=== PATIENT | female | born 1975 | race African-American/Black ===

== ENCOUNTER 2022-03-22 08:29 | Inpatient (IN) | payer MEDICARE, MEDICAID ==
[~2022-03-22] VITALS: Ht 162.6 cm; Wt 73.3 kg
[2022-03-22] MEDS ORDERED: SODIUM CHLORIDE 0.9% 1000ML BAG (SEPSIS BOLUS) IV ONE (08:45)
[2022-03-22 09:20] LABS: BASOPHILS % 0.4 % (0.0-2.0); CHLORIDE 108 mEq/L (98-107); EOSINOPHILS % 0.7 % (0.0-5.0); HEMATOCRIT. 25.7 % (36.0-48.0); LYMPHOCYTES % 23.9 % (20.0-50.0); MEAN CORPUSCULAR HEMOGLOBIN 29.3 pg (28.0-32.0); MEAN CORPUSCULAR VOLUME 94.2 fL (81.0-99.0); MEAN PLATELET VOLUME 9.4 fl (7.4-10.4); MONOCYTES % 8.3 % (2.0-8.0); NEUTROPHILS % 66.7 % (40.0-76.0); PLATELET 288 x1000/uL (130-400); RED BLOOD CELL COUNT 2.73 mill/uL (4.2-5.4); RED CELL DISTRIBUTION WIDTH 17.6 % (11.6-14.6)
[2022-03-22 09:23] LABS: PROTHROMBIN TIME 10.8 sec (9.6-11.0)
[2022-03-22 09:29] LABS: CLARITY URINE TURBID (CLEAR); COLOR URINE YELLOW (YELLOW); KETONES URINE NEGATIVE (NEGATIVE); LEUKOCYTE ESTERASE URINE 3+ (NEGATIVE); NITRITE URINE POSITIVE (NEGATIVE); OCCULT BLOOD URINE 3+ (NEGATIVE); PH URINE 7.5 (4.5-8.0); PROTEIN URINE 3+ (NEGATIVE); SPECIFIC GRAVITY URINE 1.013 (1.005-1.030); UROBILINOGEN URINE 0.2 E.U./dL (0.2-1.0)
[2022-03-22] MEDS ORDERED: FUROSEMIDE 100MG/10ML VIAL IV NR (09:31)
[2022-03-22] MEDS ORDERED: DEXTROSE 50% WATER 50ML SYRINGE IV NR ×2 (09:45→20:30)
[2022-03-22] MEDS ORDERED: CALCIUM CHLORIDE 1GM/10ML SYR IV NR ×2 (09:45→20:30)
[2022-03-22] MEDS ORDERED: INSULIN REGULAR (HUMULIN R) 300UNITS/3ML VIAL IV NR ×2 (09:45→20:30)
[2022-03-22] MEDS ORDERED: SODIUM BICARBONATE 8.4% 1 MEQ/ML 50ML SYR IV NR (09:45)
[2022-03-22] MEDS ORDERED: ALBUTEROL (0.083%) 2.5MG/3ML NEB HHN NR (09:45)
[2022-03-22 10:31] LABS: BG BASE EXCESS -10.4 mmol/L (-2.0-2.0); BG CARBOXYHEMOGLOBIN 0.3 % (0.5-1.5); BG DEOXYHEMOGLOBIN 5.5 % (0.0-5.0); BG FRACTION INSPIRED OXYGEN 44; BG HCO3 ACT 15.9 mmol/L (22.0-26.0); BG METHEMOGLOBIN 0.3 % (0.0-1.5); BG OXYGEN SATURATION 94.5 % (92.0-98.5); BG OXYHEMOGLOBIN 93.9 % (94.0-97.0); BG PCO2 36.7 mmHg (35.0-45.0); BG PH 7.254 (7.350-7.450); BG PO2 82.2 mmHg (75.0-100.0); BG SAMPLE SITE LEFT RADIAL; BG TOTAL HEMOGLOBIN 7.9 g/dL (12.0-18.0); BG VENT MODE NASAL CANNULA
[2022-03-22] MEDS ORDERED: VANCOMYCIN 1G PREMIX 200 ML IV NR (11:00)
[2022-03-22] MEDS ORDERED: MEROPENEM 1,000 MG in SODIUM CHLORIDE 0.9% 100 ML IV NR (11:00)
[2022-03-22] MEDS ORDERED: DOCUSATE SODIUM 100MG CAPSULE PO PRN (13:15)
[2022-03-22] MEDS ORDERED: IPRATROPIUM/ALBUTEROL 0.5-3(2.5)MG/3ML NEB NEB PRN (13:15)
[2022-03-22] MEDS ORDERED: LEVOFLOXACIN 500MG PREMIX 100 ML IV NR (13:15)
[2022-03-22] MEDS ORDERED: ONDANSETRON HCL 4MG/2ML INJ IV PRN (13:15)
[2022-03-22] MEDS ORDERED: ENOXAPARIN 40MG/0.4ML SYR SUBCUT SCH (13:15)
[2022-03-22] MEDS ORDERED: VANCOMYCIN 500MG PREMIX 100 ML IV NR (13:45)
[2022-03-22] MEDS ORDERED: NALOXONE HCL 0.4MG/ML VIAL IV PRN (13:45)
[2022-03-22] MEDS: SODIUM CHLORIDE 0.9% 1,000 ML IV SCH (14:13)
[2022-03-22] MEDS: ENOXAPARIN 30MG/0.3ML SYR SUBCUT SCH (14:31)
[2022-03-22] MEDS ORDERED: AZITHROMYCIN 500 MG in DEXT 5% WATER 250 ML IV SCH (18:00)
[2022-03-22] MEDS ORDERED: SODIUM POLYSTYRENE SULFONATE 15 G/60 ML BOT GT NR (20:30)
[2022-03-22 22:00] VITALS: BP 138/44
[2022-03-23] VITALS: BP 160/95
[2022-03-23 04:00] VITALS: BP 155/90
[2022-03-23 05:48] LABS: BASOPHILS % 0.3 % (0.0-2.0); EOSINOPHILS % 0.2 % (0.0-5.0); HEMATOCRIT. 27.9 % (36.0-48.0); HEMOGLOBIN. 8.6 g/dL (12.0-16.0); LYMPHOCYTES % 10.6 % (20.0-50.0); MEAN CORPUSCULAR HEMOGLOBIN 29.2 pg (28.0-32.0); MEAN CORPUSCULAR VOLUME 94.5 fL (81.0-99.0); MEAN PLATELET VOLUME 9.8 fl (7.4-10.4); MONOCYTES % 5.9 % (2.0-8.0); PLATELET 316 x1000/uL (130-400); RED BLOOD CELL COUNT 2.96 mill/uL (4.2-5.4)
[2022-03-23 06:16] LABS: CHLORIDE 112 mEq/L (98-107)
[2022-03-23] MEDS: SODIUM CHLORIDE 0.9% 1,000 ML IV SCH (06:24)
[2022-03-23] MEDS ORDERED: DEXTROSE 50% WATER 50ML SYRINGE IV PRN (07:45)
[2022-03-23 08:00] VITALS: BP 155/93
[2022-03-23] MEDS ORDERED: SODIUM POLYSTYRENE SULFONATE 15 G/60 ML BOT GT NR (08:00)
[2022-03-23] MEDS: INSULIN LISPRO 100 UNITS/ML SUBCUT SCH ×4 (08:10→21:10)
[2022-03-23] MEDS: BLOOD SUGAR DIAGNOSTIC STRIP TEST SCH ×4 (08:25→21:00)
[2022-03-23] MEDS ORDERED: LIDOCAINE HCL/PF 1% 10 MG/ML 5ML VIAL ONE (10:26)
[2022-03-23] MEDS ORDERED: MEROPENEM 1,000 MG in SODIUM CHLORIDE 0.9% 100 ML IV SCH (11:00)
[2022-03-23] MEDS ORDERED: SODIUM BICARBONATE 8.4% 1 MEQ/ML 50ML SYR IV NR (11:15)
[2022-03-23] MEDS ORDERED: INSULIN REGULAR (HUMULIN R) 300UNITS/3ML VIAL IV NR (11:30)
[2022-03-23 12:00] VITALS: BP 117/72
[2022-03-23] MEDS ORDERED: CALCIUM CHLORIDE 1,000 MG in DEXT 5% WATER 90 ML IV NR (12:30)
[2022-03-23] MEDS: MEROPENEM 500MG in NORMAL SALINE 50ML IV SCH ×2 (15:31→21:10)
[2022-03-23] MEDS: LACTOBACILLUS GG CAPSULE PO SCH (15:50)
[2022-03-23] MEDS: HYDRALAZINE HCL 25MG TABLET PO SCH ×2 (15:52→21:10)
[2022-03-23] MEDS: ENOXAPARIN 30MG/0.3ML SYR SUBCUT SCH (15:53)
[2022-03-23 16:00] VITALS: BP 155/85
[2022-03-23] MEDS: SODIUM BICARBONATE 100 MEQ in DEXTROSE 5% WATER 1,000 ML IV SCH (17:31)
[2022-03-23 18:32] LABS: HEPATITIS B SURFACE ANTIGEN NEGATIVE
[2022-03-23] MEDS: TRAMADOL 50MG TABLET PO PRN (19:51)
[2022-03-23 20:00] VITALS: BP 174/83
[2022-03-24] VITALS: BP 170/80
[2022-03-24] MEDS: AZITHROMYCIN 500 MG in DEXT 5% WATER 250 ML IV SCH ×2 (01:03→23:02)
[2022-03-24 04:00] VITALS: BP 161/80
[2022-03-24] MEDS: SODIUM BICARBONATE 100 MEQ in DEXTROSE 5% WATER 1,000 ML IV SCH (04:29)
[2022-03-24] MEDS: HYDRALAZINE HCL 25MG TABLET PO SCH ×3 (05:42→20:57)
[2022-03-24] MEDS: BLOOD SUGAR DIAGNOSTIC STRIP TEST SCH ×4 (06:47→20:57)
[2022-03-24] MEDS: MEROPENEM 500MG in NORMAL SALINE 50ML IV SCH ×2 (08:23→20:57)
[2022-03-24] MEDS: INSULIN LISPRO 100 UNITS/ML SUBCUT SCH ×4 (08:24→20:57)
[2022-03-24] MEDS: LACTOBACILLUS GG CAPSULE PO SCH (08:24)
[2022-03-24] MEDS ORDERED: LEVOFLOXACIN 250MG PREMIX 50 ML IV SCH (11:00)
[2022-03-24 12:00] VITALS: BP 167/77
[2022-03-24] MEDS ORDERED: METOPROLOL SUCCINATE 50MG ER TABLET PO SCH (12:00)
[2022-03-24] MEDS: METOPROLOL TARTRATE 25MG TABLET PO SCH ×2 (13:27→21:05)
[2022-03-24] MEDS: ENOXAPARIN 30MG/0.3ML SYR SUBCUT SCH (13:31)
[2022-03-24 13:32] LABS: BG CARBOXYHEMOGLOBIN 0.1 % (0.5-1.5); BG DEOXYHEMOGLOBIN 8.7 % (0.0-5.0); BG FRACTION INSPIRED OXYGEN 36; BG HCO3 ACT 26.1 mmol/L (22.0-26.0); BG METHEMOGLOBIN 0.3 % (0.0-1.5); BG OXYGEN SATURATION 91.3 % (92.0-98.5); BG OXYHEMOGLOBIN 90.9 % (94.0-97.0); BG PCO2 38.5 mmHg (35.0-45.0); BG PH 7.449 (7.350-7.450); BG PO2 62.8 mmHg (75.0-100.0); BG SAMPLE SITE RIGHT RADIAL; BG TOTAL HEMOGLOBIN 7.4 g/dL (12.0-18.0); BG VENT MODE NASAL CANNULA
[2022-03-24 16:00] VITALS: BP 109/85
[2022-03-24 17:08] LABS: CHLORIDE 104 mEq/L (98-107)
[2022-03-24 17:15] LABS: BASOPHILS % 0.3 % (0.0-2.0); EOSINOPHILS % 0.7 % (0.0-5.0); HEMATOCRIT. 22.4 % (36.0-48.0); HEMOGLOBIN. 7.2 g/dL (12.0-16.0); LYMPHOCYTES % 12.2 % (20.0-50.0); MEAN CORPUSCULAR HEMOGLOBIN 28.9 pg (28.0-32.0); MEAN CORPUSCULAR VOLUME 89.5 fL (81.0-99.0); MEAN PLATELET VOLUME 9.5 fl (7.4-10.4); MONOCYTES % 6.9 % (2.0-8.0); NEUTROPHILS % 79.9 % (40.0-76.0); PLATELET 216 x1000/uL (130-400); RED CELL DISTRIBUTION WIDTH 16.8 % (11.6-14.6)
[2022-03-24] MEDS ORDERED: POTASSIUM CHLORIDE INJ 40 MEQ in DEXT 5% WATER 500 ML IV ONE (17:45)
[2022-03-24] MEDS: KCL 20MEQ/100ML X 2 FOR TOTAL KCL 40MEQ/200ML IV SCH ×2 (18:00→21:00)
[2022-03-24 20:00] VITALS: BP 165/84
[2022-03-25] VITALS (8 sets, daily range): BP systolic 155–196; BP diastolic 84–106
[2022-03-25] MEDS: HYDRALAZINE HCL 25MG TABLET PO SCH ×3 (06:35→20:59)
[2022-03-25] MEDS: BLOOD SUGAR DIAGNOSTIC STRIP TEST SCH ×4 (06:35→21:00)
[2022-03-25] MEDS: INSULIN LISPRO 100 UNITS/ML SUBCUT SCH ×4 (06:36→21:00)
[2022-03-25] MEDS: MEROPENEM 500MG in NORMAL SALINE 50ML IV SCH (09:58)
[2022-03-25] MEDS: TRAMADOL 50MG TABLET PO PRN ×2 (10:07→21:08)
[2022-03-25] MEDS: LACTOBACILLUS GG CAPSULE PO SCH (10:07)
[2022-03-25] MEDS: METOPROLOL TARTRATE 25MG TABLET PO SCH ×2 (10:07→20:58)
[2022-03-25 10:47] LABS: BASOPHILS % 0.3 % (0.0-2.0); EOSINOPHILS % 0.8 % (0.0-5.0); HEMATOCRIT. 23.1 % (36.0-48.0); HEMOGLOBIN. 7.5 g/dL (12.0-16.0); LYMPHOCYTES % 10.3 % (20.0-50.0); MEAN CORPUSCULAR VOLUME 89.3 fL (81.0-99.0); MEAN PLATELET VOLUME 9.7 fl (7.4-10.4); MONOCYTES % 5.4 % (2.0-8.0); NEUTROPHILS % 83.2 % (40.0-76.0); PLATELET 215 x1000/uL (130-400); RED BLOOD CELL COUNT 2.58 mill/uL (4.2-5.4); RED CELL DISTRIBUTION WIDTH 16.9 % (11.6-14.6)
[2022-03-25 10:52] LABS: CHLORIDE 102 mEq/L (98-107)
[2022-03-25] MEDS ORDERED: MAGNESIUM SULFATE 1GM/2ML VIAL IV ONE (11:15)
[2022-03-25] MEDS ORDERED: MAGNESIUM 2 G PREMIX 50 ML IV NR (13:00)
[2022-03-25] MEDS: KCL 20MEQ/100ML PREMIX 100 ML IV SCH ×2 (15:36→15:42)
[2022-03-25] MEDS: GUAIFENESIN 200MG/10ML SUGAR FREE UDC PO PRN ×2 (16:43→20:58)
[2022-03-25] MEDS ORDERED: VANCOMYCIN 750MG PREMIX 150 ML IV NR (20:00)
[2022-03-25] MEDS: COLISTIMETHATE SODIUM 130 MG in SODIUM CHLORIDE 0.9% 100 ML IV SCH (21:56)
[2022-03-25] MEDS ORDERED: COLISTIMETHATE SODIUM 130 MG in SODIUM CHLORIDE 0.9% 100 ML IV SCH (22:00)
[2022-03-26] VITALS (9 sets, daily range): BP systolic 140–183; BP diastolic 75–99
[2022-03-26] MEDS: MEROPENEM 500MG in NORMAL SALINE 50ML IV SCH ×3 (00:36→20:39)
[2022-03-26] MEDS: HYDRALAZINE 20MG/ML VIAL IV PRN ×3 (00:57→14:39)
[2022-03-26] MEDS: GUAIFENESIN 200MG/10ML SUGAR FREE UDC PO PRN (01:29)
[2022-03-26] MEDS: AZITHROMYCIN 500 MG in DEXT 5% WATER 250 ML IV SCH ×2 (01:29→23:00)
[2022-03-26] MEDS: TRAMADOL 50MG TABLET PO PRN (04:32)
[2022-03-26] MEDS: HYDRALAZINE HCL 25MG TABLET PO SCH ×3 (04:58→22:04)
[2022-03-26] MEDS: BLOOD SUGAR DIAGNOSTIC STRIP TEST SCH ×4 (05:54→20:38)
[2022-03-26 06:22] LABS: BASOPHILS % 0.4 % (0.0-2.0); EOSINOPHILS % 1.2 % (0.0-5.0); HEMATOCRIT. 21.8 % (36.0-48.0); LYMPHOCYTES % 12.4 % (20.0-50.0); MEAN CORPUSCULAR HEMOGLOBIN 28.7 pg (28.0-32.0); MEAN CORPUSCULAR VOLUME 89.6 fL (81.0-99.0); MEAN PLATELET VOLUME 9.5 fl (7.4-10.4); MONOCYTES % 6.5 % (2.0-8.0); NEUTROPHILS % 79.5 % (40.0-76.0); PLATELET 198 x1000/uL (130-400); RED BLOOD CELL COUNT 2.43 mill/uL (4.2-5.4); RED CELL DISTRIBUTION WIDTH 16.8 % (11.6-14.6)
[2022-03-26 06:48] LABS: CHLORIDE 108 mEq/L (98-107)
[2022-03-26] MEDS: INSULIN LISPRO 100 UNITS/ML SUBCUT SCH ×4 (07:40→20:39)
[2022-03-26] MEDS: METOPROLOL TARTRATE 25MG TABLET PO SCH (09:15)
[2022-03-26] MEDS: LACTOBACILLUS GG CAPSULE PO SCH (09:15)
[2022-03-26] MEDS: COLISTIMETHATE SODIUM 130 MG in SODIUM CHLORIDE 0.9% 100 ML IV SCH (18:08)
[2022-03-26] MEDS: METOPROLOL TARTRATE 50MG TABLET PO SCH (20:40)
[2022-03-27] VITALS: BP 150/85
[2022-03-27 04:00] VITALS: BP 168/89
[2022-03-27] MEDS: HYDRALAZINE HCL 25MG TABLET PO SCH ×3 (05:22→21:28)
[2022-03-27 06:23] LABS: BASOPHILS % 0.4 % (0.0-2.0); EOSINOPHILS % 1.8 % (0.0-5.0); HEMATOCRIT. 29.7 % (36.0-48.0); HEMOGLOBIN. 9.6 g/dL (12.0-16.0); LYMPHOCYTES % 15.3 % (20.0-50.0); MEAN CORPUSCULAR HEMOGLOBIN 28.7 pg (28.0-32.0); MEAN CORPUSCULAR VOLUME 88.6 fL (81.0-99.0); MEAN PLATELET VOLUME 9.6 fl (7.4-10.4); MONOCYTES % 8.6 % (2.0-8.0); NEUTROPHILS % 73.9 % (40.0-76.0); PLATELET 181 x1000/uL (130-400); RED BLOOD CELL COUNT 3.36 mill/uL (4.2-5.4); RED CELL DISTRIBUTION WIDTH 16.3 % (11.6-14.6)
[2022-03-27] MEDS: BLOOD SUGAR DIAGNOSTIC STRIP TEST SCH ×4 (07:28→21:00)
[2022-03-27] MEDS: INSULIN LISPRO 100 UNITS/ML SUBCUT SCH ×4 (07:28→21:27)
[2022-03-27 07:46] LABS: PHOSPHORUS 1.8 mg/dL (2.5-4.9)
[2022-03-27] MEDS: MEROPENEM 500MG in NORMAL SALINE 50ML IV SCH ×2 (09:40→21:26)
[2022-03-27] MEDS: METOPROLOL TARTRATE 50MG TABLET PO SCH ×2 (09:40→21:27)
[2022-03-27] MEDS: LACTOBACILLUS GG CAPSULE PO SCH (09:40)
[2022-03-27 12:00] VITALS: BP 195/96
[2022-03-27] MEDS ORDERED: POTASSIUM PHOS,M-BASIC-D-BASIC 20 MMOL in DEXT 5% WATER 243.3333 ML IV NR (12:00)
[2022-03-27] MEDS ORDERED: COLI150V9 IJ (13:31)
[2022-03-27] MEDS ORDERED: MERO500P IV (13:31)
[2022-03-27] MEDS ORDERED: AZIT500T8 PO (13:31)
[2022-03-27] MEDS ORDERED: AZIT500T8 MT (14:27)
[2022-03-27 16:00] VITALS: BP 164/86
[2022-03-27] MEDS: COLISTIMETHATE SODIUM 130 MG in SODIUM CHLORIDE 0.9% 100 ML IV SCH (18:37)
[2022-03-27] MEDS: ACETAMINOPHEN 325MG TABLET PO PRN (18:38)
[2022-03-27 20:00] VITALS: BP 118/68
[2022-03-28] VITALS: BP 165/97
[2022-03-28] MEDS: AZITHROMYCIN 500 MG in DEXT 5% WATER 250 ML IV SCH (01:12)
[2022-03-28 04:00] VITALS: BP 158/88
[2022-03-28] MEDS: HYDRALAZINE HCL 25MG TABLET PO SCH ×2 (06:26→15:16)
[2022-03-28] MEDS: BLOOD SUGAR DIAGNOSTIC STRIP TEST SCH ×2 (07:20→12:40)
[2022-03-28] MEDS: INSULIN LISPRO 100 UNITS/ML SUBCUT SCH ×2 (07:20→13:10)
[2022-03-28 08:00] VITALS: BP 138/79
[2022-03-28] MEDS: MEROPENEM 500MG in NORMAL SALINE 50ML IV SCH (10:26)
[2022-03-28] MEDS: LACTOBACILLUS GG CAPSULE PO SCH (10:26)
[2022-03-28] MEDS: METOPROLOL TARTRATE 50MG TABLET PO SCH (10:27)
[2022-03-28 11:18] LABS: HEMATOCRIT. 26.3 % (36.0-48.0); HEMOGLOBIN. 8.5 g/dL (12.0-16.0); MEAN CORPUSCULAR HEMOGLOBIN 28.6 pg (28.0-32.0); MEAN CORPUSCULAR VOLUME 88.6 fL (81.0-99.0); PLATELET 168 x1000/uL (130-400); RED BLOOD CELL COUNT 2.97 mill/uL (4.2-5.4)
[2022-03-28 11:35] LABS: CHLORIDE 106 mEq/L (98-107)
[2022-03-28 12:00] VITALS: BP 128/76
[2022-03-28 13:51] LABS: CREATININE URINE (RAW) < 10.0 mg/dl
[2022-03-28] MEDS: ACETAMINOPHEN 325MG TABLET PO PRN (15:16)
[2022-03-28 16:00] VITALS: BP 138/82
[2022-03-28 23:02] LABS: PLATELET ESTIMATE NORMAL
== END 2022-03-28 14:55 | DRG 871 ==
LOC: ER 08:29 → 7WST 11:16 → ENRESERV 19:02
PROVIDERS: ADMIT Hospitalist; ATTEND Hospitalist
PROC: 02HV33Z Insertion of Infusion Device into Superior Vena Cava, Percutaneous Approach (ICD-10-PCS; 2022-03-23)
PROC: B548ZZA Ultrasonography of Superior Vena Cava, Guidance (ICD-10-PCS; 2022-03-23)
PROC: 05HM33Z Insertion of Infusion Device into Right Internal Jugular Vein, Percutaneous Approach (ICD-10-PCS; 2022-03-23)
PROC: B543ZZA Ultrasonography of Right Jugular Veins, Guidance (ICD-10-PCS; 2022-03-23)
PROC: 5A1D70Z Performance of Urinary Filtration, Intermittent, Less than 6 Hours Per Day (ICD-10-PCS; 2022-03-23)
PROC: 30233N1 Transfusion of Nonautologous Red Blood Cells into Peripheral Vein, Percutaneous Approach (ICD-10-PCS; principal; 2022-03-26)
PROC: 5A1D70Z Performance of Urinary Filtration, Intermittent, Less than 6 Hours Per Day (ICD-10-PCS; 2022-03-26)
DX: A41.9 Sepsis, unspecified organism (principal); E43 Unspecified severe protein-calorie malnutrition; J18.9 Pneumonia, unspecified organism; G93.41 Metabolic encephalopathy; E87.2 Acidosis; N17.9 Acute kidney failure, unspecified; N39.0 Urinary tract infection, site not specified; E11.52 Type 2 diabetes mellitus with diabetic peripheral angiopathy with gangrene; D63.8 Anemia in other chronic diseases classified elsewhere; E11.22 Type 2 diabetes mellitus with diabetic chronic kidney disease; E78.5 Hyperlipidemia, unspecified; E86.9 Volume depletion, unspecified; E87.5 Hyperkalemia; E87.70 Fluid overload, unspecified; I12.9 Hypertensive chronic kidney disease with stage 1 through stage 4 chronic kidney disease, or unspecified chronic kidney disease; N18.9 Chronic kidney disease, unspecified; R13.10 Dysphagia, unspecified; R65.20 Severe sepsis without septic shock; E87.6 Hypokalemia; Z93.1 Gastrostomy status; Z88.0 Allergy status to penicillin; Z88.2 Allergy status to sulfonamides; Z91.09 Other allergy status, other than to drugs and biological substances; Z68.27 Body mass index [BMI] 27.0-27.9, adult; Y95 Nosocomial condition
CPT/HCPCS: 36415; 36556; 36573; 36600; 71045; 76937; 80048; 80053; 80202; 81003; 82375; 82575; 82805; 82962; 83036; 83605; 83735; 84100; 84145; 84484; 85025; 86705; 86709; 86803; 86850; 86900; 86920; 87077; 87186; 87340; 87426; 93005; 93923; 93970; 94644; 99291; C1725; C1752; J0360; J0456; J0770; J1650; J1815; J1940; J1956; J2185; J3370; J3475; J3480; J3490; J7030; J7050; J7060; J7070; P9016

== ENCOUNTER 2022-04-03 10:03 | Inpatient (IN) | payer MEDICARE, MEDICAID ==
[~2022-04-03] VITALS: Ht 193 cm; Wt 90.7 kg
[~2022-04-03 10:03] MED LIST: AZIT500T8 MT; COLI150V9 IJ; MERO500P IV
[2022-04-03 10:38] LABS: BASOPHILS % 0.5 % (0.0-2.0); EOSINOPHILS % 0.5 % (0.0-5.0); HEMATOCRIT. 26.2 % (36.0-48.0); HEMOGLOBIN. 8.4 g/dL (12.0-16.0); LYMPHOCYTES % 8.3 % (20.0-50.0); MEAN CORPUSCULAR HEMOGLOBIN 28.8 pg (28.0-32.0); MEAN CORPUSCULAR VOLUME 89.8 fL (81.0-99.0); MEAN PLATELET VOLUME 9.4 fl (7.4-10.4); MONOCYTES % 4.5 % (2.0-8.0); NEUTROPHILS % 86.2 % (40.0-76.0); PLATELET 443 x1000/uL (130-400); RED BLOOD CELL COUNT 2.92 mill/uL (4.2-5.4)
[2022-04-03] MEDS ORDERED: ALBUTEROL (0.083%) 2.5MG/3ML NEB HHN ONE (10:45)
[2022-04-03 11:03] LABS: CHLORIDE 101 mEq/L (98-107)
[2022-04-03 11:13] LABS: ETHANOL BLOOD < 10 mg/dL
[2022-04-03] MEDS ORDERED: AZTREONAM 2 GM in DEXT 5% WATER 100 ML IV SCH (11:30)
[2022-04-03 12:02] LABS: *AMPHETAMINES SCREEN URINE NEGATIVE (NEGATIVE); *BARBITURATES SCREEN URINE NEGATIVE (NEGATIVE); *BENZODIAZEPINES SCREEN URINE NEGATIVE (NEGATIVE); *COCAINE SCREEN URINE NEGATIVE (NEGATIVE); CANNABINOID URINE SCREEN NEGATIVE (NEGATIVE); METHADONE URINE SCREEN NEGATIVE (NEGATIVE); PHENCYCLIDINE URINE SCREEN NEGATIVE (NEGATIVE)
[2022-04-03 12:03] LABS: OPIATES URINE SCREEN PRESUMTIVE POSITIVE (NEGATIVE)
[2022-04-03] MEDS ORDERED: FUROSEMIDE 20MG/2ML VIAL IVP NR (12:15)
[2022-04-03] MEDS ORDERED: MEROPENEM 500 MG in SODIUM CHLORIDE 0.9% 50 ML IV SCH (16:00)
[2022-04-03] MEDS ORDERED: SODIUM CHLORIDE 0.9% 1,000 ML IV SCH (20:15)
[2022-04-03] MEDS ORDERED: GUAIFENESIN 200MG/10ML SUGAR FREE UDC PEG PRN (20:15)
[2022-04-03] MEDS ORDERED: IPRATROPIUM/ALBUTEROL 0.5-3(2.5)MG/3ML NEB NEB PRN (20:15)
[2022-04-03] MEDS ORDERED: BLOOD SUGAR DIAGNOSTIC STRIP TEST SCH (20:15)
[2022-04-03] MEDS ORDERED: ACETAMINOPHEN 650MG/20.3ML UDC GT PRN ×2 (20:15)
[2022-04-03] MEDS ORDERED: INSULIN LISPRO 100 UNITS/ML SUBCUT SCH (20:15)
[2022-04-03] MEDS ORDERED: CLONIDINE 0.1MG TABLET PEG PRN (20:15)
[2022-04-03] MEDS ORDERED: DEXTROSE 50% WATER 50ML SYRINGE IV PRN (20:15)
[2022-04-03] MEDS ORDERED: ONDANSETRON HCL 4MG/2ML INJ IV PRN (20:15)
[2022-04-04] VITALS (9 sets, daily range): BP systolic 112–142; BP diastolic 58–88
[2022-04-04] MEDS ORDERED: LACT1CAP58 PEG (02:31)
[2022-04-04] MEDS ORDERED: ONDA4TAB50 PEG (02:31)
[2022-04-04] MEDS ORDERED: HYDR-4134 PO (02:31)
[2022-04-04] MEDS ORDERED: PREG100C PEG (02:31)
[2022-04-04] MEDS ORDERED: METO-539 PEG (02:31)
[2022-04-04] MEDS ORDERED: DOCU100T PEG (02:31)
[2022-04-04] MEDS ORDERED: HYDR-4001 PEG (02:31)
[2022-04-04] MEDS ORDERED: BACL-141 PEG (02:31)
[2022-04-04] MEDS ORDERED: MUPI1OIN4 TP (02:31)
[2022-04-04] MEDS ORDERED: HYDR-4133 PEG (02:31)
[2022-04-04] MEDS ORDERED: IPRA3AMP31 IH (02:31)
[2022-04-04] MEDS ORDERED: TOPUD PEG (02:31)
[2022-04-04] MEDS ORDERED: DICL100G31 TP (02:31)
[2022-04-04] MEDS: BLOOD SUGAR DIAGNOSTIC STRIP TEST SCH ×4 (05:40→23:14)
[2022-04-04] MEDS: INSULIN LISPRO 100 UNITS/ML SUBCUT SCH ×4 (05:40→23:15)
[2022-04-04 09:35] LABS: CLARITY URINE CLEAR (CLEAR); COLOR URINE YELLOW (YELLOW); KETONES URINE NEGATIVE (NEGATIVE); LEUKOCYTE ESTERASE URINE TRACE (NEGATIVE); NITRITE URINE NEGATIVE (NEGATIVE); OCCULT BLOOD URINE 1+ (NEGATIVE); PH URINE 7.5 (4.5-8.0); PROTEIN URINE 3+ (NEGATIVE); SPECIFIC GRAVITY URINE 1.011 (1.005-1.030); UROBILINOGEN URINE 0.2 E.U./dL (0.2-1.0)
[2022-04-04 10:35] LABS: CREATINE KINASE 53 IU/L (26-192)
[2022-04-04] MEDS: ENOXAPARIN 40MG/0.4ML SYR SUBCUT SCH (11:37)
[2022-04-04] MEDS: FUROSEMIDE 40MG/4ML VIAL IVP SCH ×2 (11:49→19:13)
[2022-04-04] MEDS: MEROPENEM 1000MG in NORMAL SALINE 100ML IV SCH ×2 (15:52→23:02)
[2022-04-04] MEDS: ACETYLCYSTEINE 100MG/ML 10% VIAL 4ML INH SCH (16:30)
[2022-04-04] MEDS: IPRATROPIUM/ALBUTEROL 0.5-3(2.5)MG/3ML NEB HHN SCH ×2 (16:42→21:31)
[2022-04-04] MEDS ORDERED: SODIUM CHLORIDE 10% FOR INH 15ML VIAL NEB INH SCH (17:00)
[2022-04-05] VITALS (7 sets, daily range): BP systolic 129–141; BP diastolic 76–85
[2022-04-05] MEDS: IPRATROPIUM/ALBUTEROL 0.5-3(2.5)MG/3ML NEB HHN SCH ×6 (02:03→21:31)
[2022-04-05] MEDS: ACETYLCYSTEINE 100MG/ML 10% VIAL 4ML INH SCH ×3 (02:03→16:32)
[2022-04-05] MEDS: BLOOD SUGAR DIAGNOSTIC STRIP TEST SCH ×3 (05:33→18:32)
[2022-04-05] MEDS: INSULIN LISPRO 100 UNITS/ML SUBCUT SCH ×3 (05:33→18:00)
[2022-04-05 06:41] LABS: BASOPHILS % 0.4 % (0.0-2.0); EOSINOPHILS % 0.5 % (0.0-5.0); HEMATOCRIT. 29.5 % (36.0-48.0); HEMOGLOBIN. 9.4 g/dL (12.0-16.0); MEAN CORPUSCULAR HEMOGLOBIN 28.5 pg (28.0-32.0); MEAN CORPUSCULAR VOLUME 89.6 fL (81.0-99.0); MEAN PLATELET VOLUME 9.7 fl (7.4-10.4); MONOCYTES % 4.2 % (2.0-8.0); NEUTROPHILS % 82.9 % (40.0-76.0); PLATELET 527 x1000/uL (130-400); RED BLOOD CELL COUNT 3.29 mill/uL (4.2-5.4); RED CELL DISTRIBUTION WIDTH 16.2 % (11.6-14.6)
[2022-04-05 06:44] LABS: CHLORIDE 107 mEq/L (98-107)
[2022-04-05] MEDS: ENOXAPARIN 40MG/0.4ML SYR SUBCUT SCH (09:10)
[2022-04-05] MEDS: MEROPENEM 1000MG in NORMAL SALINE 100ML IV SCH ×2 (09:10→21:57)
[2022-04-05] MEDS: FUROSEMIDE 40MG/4ML VIAL IVP SCH ×2 (09:10→18:46)
[2022-04-05] MEDS: METOPROLOL TARTRATE 25MG TABLET PO SCH ×2 (09:43→21:59)
[2022-04-05] MEDS ORDERED: IPRATROPIUM/ALBUTEROL 0.5-3(2.5)MG/3ML NEB NEB PRN (12:00)
[2022-04-05] MEDS ORDERED: VANCOMYCIN 1500MG in DEXTROSE 5% WATER 250ML IV NR (14:00)
[2022-04-06] VITALS: BP 118/66
[2022-04-06] MEDS: IPRATROPIUM/ALBUTEROL 0.5-3(2.5)MG/3ML NEB HHN SCH ×6 (00:34→20:18)
[2022-04-06] MEDS: ACETYLCYSTEINE 100MG/ML 10% VIAL 4ML INH SCH ×3 (00:34→17:36)
[2022-04-06] MEDS: BLOOD SUGAR DIAGNOSTIC STRIP TEST SCH ×4 (01:06→18:28)
[2022-04-06] MEDS: INSULIN LISPRO 100 UNITS/ML SUBCUT SCH ×4 (01:06→18:00)
[2022-04-06 04:00] VITALS: BP 146/80
[2022-04-06 08:00] VITALS: BP 119/74
[2022-04-06] MEDS ORDERED: POTASSIUM CHLORIDE 20MEQ/PACKET PO NR (09:15)
[2022-04-06] MEDS: MEROPENEM 1000MG in NORMAL SALINE 100ML IV SCH ×2 (09:50→18:19)
[2022-04-06] MEDS: FUROSEMIDE 40MG/4ML VIAL IVP SCH ×2 (09:50→18:20)
[2022-04-06] MEDS: ENOXAPARIN 40MG/0.4ML SYR SUBCUT SCH (09:51)
[2022-04-06] MEDS: METOPROLOL TARTRATE 25MG TABLET PO SCH ×2 (09:51→20:26)
[2022-04-06] MEDS ORDERED: POTASSIUM CHLORIDE 20MEQ/PACKET PEG NR (11:15)
[2022-04-06 12:00] VITALS: BP 129/68
[2022-04-06] MEDS ORDERED: VANCOMYCIN 1G PREMIX 200 ML IV SCH (14:00)
[2022-04-06] MEDS ORDERED: NALOXONE HCL 0.4MG/ML VIAL IV PRN (15:15)
[2022-04-06] MEDS: VANCOMYCIN 750MG PREMIX 150 ML IV SCH (15:28)
[2022-04-06] MEDS: HYDROCODONE/ACETAMINOPHEN 5/325MG TABLET PO PRN ×2 (15:31→21:46)
[2022-04-06 16:00] VITALS: BP 124/74
[2022-04-06 20:00] VITALS: BP 141/78
[2022-04-07] VITALS: BP 138/66
[2022-04-07] MEDS: ACETYLCYSTEINE 100MG/ML 10% VIAL 4ML INH SCH ×4 (00:14→22:00)
[2022-04-07] MEDS: IPRATROPIUM/ALBUTEROL 0.5-3(2.5)MG/3ML NEB HHN SCH ×6 (00:14→21:10)
[2022-04-07] MEDS: MEROPENEM 1000MG in NORMAL SALINE 100ML IV SCH ×3 (02:32→17:54)
[2022-04-07] MEDS: HYDROCODONE/ACETAMINOPHEN 5/325MG TABLET PO PRN ×2 (03:59→08:19)
[2022-04-07 04:00] VITALS: BP 140/87
[2022-04-07 05:07] LABS: PHOSPHORUS 3.5 mg/dL (2.5-4.9); VANCOMYCIN TROUGH 35.1 ug/mL (5.0-10.0)
[2022-04-07] MEDS: INSULIN LISPRO 100 UNITS/ML SUBCUT SCH ×4 (05:25→17:56)
[2022-04-07] MEDS: BLOOD SUGAR DIAGNOSTIC STRIP TEST SCH ×4 (05:25→17:55)
[2022-04-07] MEDS: VANCOMYCIN 750MG PREMIX 150 ML IV SCH (05:50)
[2022-04-07 08:00] VITALS: BP 142/88
[2022-04-07] MEDS: FUROSEMIDE 40MG/4ML VIAL IVP SCH ×2 (08:16→17:10)
[2022-04-07] MEDS: METOPROLOL TARTRATE 25MG TABLET PO SCH ×2 (08:17→21:35)
[2022-04-07 08:33] LABS: BASOPHILS % 0.7 % (0.0-2.0); EOSINOPHILS % 0.9 % (0.0-5.0); HEMATOCRIT. 25.9 % (36.0-48.0); HEMOGLOBIN. 8.2 g/dL (12.0-16.0); LYMPHOCYTES % 13.6 % (20.0-50.0); MEAN CORPUSCULAR HEMOGLOBIN 28.7 pg (28.0-32.0); MEAN CORPUSCULAR VOLUME 90.2 fL (81.0-99.0); MEAN PLATELET VOLUME 9.4 fl (7.4-10.4); MONOCYTES % 6.6 % (2.0-8.0); NEUTROPHILS % 78.2 % (40.0-76.0); PLATELET 413 x1000/uL (130-400); RED BLOOD CELL COUNT 2.87 mill/uL (4.2-5.4); RED CELL DISTRIBUTION WIDTH 16.6 % (11.6-14.6)
[2022-04-07] MEDS: METOLAZONE 2.5MG TABLET PO SCH (08:42)
[2022-04-07] MEDS: ENOXAPARIN 40MG/0.4ML SYR SUBCUT SCH (08:42)
[2022-04-07] MEDS ORDERED: SODIUM POLYSTYRENE SULFONATE 15 G/60 ML BOT PO NR (09:00)
[2022-04-07] MEDS: MAGNESIUM 2 G PREMIX 50 ML IV NR ×2 (10:00→16:59)
[2022-04-07 12:00] VITALS: BP 133/82
[2022-04-07] MEDS: HYDROCODONE/ACETAMINOPHEN 10/325MG TABLET PO PRN ×2 (15:04→16:54)
[2022-04-07 16:00] VITALS: BP 144/86
[2022-04-07] MEDS ORDERED: COLISTIMETHATE SODIUM 150MG/VIAL INH SCH (16:00)
[2022-04-07] MEDS: PREGABALIN 75MG CAPSULE PO SCH (19:57)
[2022-04-07 20:00] VITALS: BP 130/83
[2022-04-07] MEDS: COLISTIMETHATE SODIUM 150MG/VIAL INH SCH (21:23)
[2022-04-08] VITALS: BP 138/86
[2022-04-08] MEDS: BLOOD SUGAR DIAGNOSTIC STRIP TEST SCH ×5 (00:39→23:37)
[2022-04-08] MEDS: INSULIN LISPRO 100 UNITS/ML SUBCUT SCH ×5 (00:42→23:37)
[2022-04-08] MEDS: IPRATROPIUM/ALBUTEROL 0.5-3(2.5)MG/3ML NEB HHN SCH ×4 (00:45→20:46)
[2022-04-08] MEDS: ACETYLCYSTEINE 100MG/ML 10% VIAL 4ML INH SCH ×2 (01:09→09:00)
[2022-04-08] MEDS: HYDROCODONE/ACETAMINOPHEN 10/325MG TABLET PO PRN ×3 (01:32→21:22)
[2022-04-08] MEDS: MEROPENEM 1000MG in NORMAL SALINE 100ML IV SCH ×3 (02:25→18:24)
[2022-04-08 04:00] VITALS: BP 136/78
[2022-04-08 07:07] LABS: MEAN CORPUSCULAR HEMOGLOBIN 28.5 pg (28.0-32.0); MEAN CORPUSCULAR VOLUME 88.8 fL (81.0-99.0); MEAN PLATELET VOLUME 9.2 fl (7.4-10.4); PLATELET 451 x1000/uL (130-400); RED BLOOD CELL COUNT 3.36 mill/uL (4.2-5.4); RED CELL DISTRIBUTION WIDTH 16.4 % (11.6-14.6)
[2022-04-08 07:12] LABS: HEMATOCRIT. 29.8 % (36.0-48.0); HEMOGLOBIN. 9.6 g/dL (12.0-16.0)
[2022-04-08 07:15] LABS: PHOSPHORUS 4.6 mg/dL (2.5-4.9)
[2022-04-08 08:00] VITALS: BP 133/81
[2022-04-08] MEDS ORDERED: SODIUM POLYSTYRENE SULFONATE 15 G/60 ML BOT PO NR (08:45)
[2022-04-08] MEDS: ENOXAPARIN 40MG/0.4ML SYR SUBCUT SCH (09:13)
[2022-04-08] MEDS: FUROSEMIDE 40MG/4ML VIAL IVP SCH (09:13)
[2022-04-08] MEDS: PREGABALIN 75MG CAPSULE PO SCH (09:13)
[2022-04-08] MEDS: METOPROLOL TARTRATE 25MG TABLET PO SCH ×2 (09:13→21:18)
[2022-04-08] MEDS: METOLAZONE 2.5MG TABLET PO SCH (09:13)
[2022-04-08 12:00] VITALS: BP 138/84
[2022-04-08] MEDS: COLISTIMETHATE SODIUM 150MG/VIAL INH SCH ×2 (12:08→20:56)
[2022-04-08 14:15] LABS: PLATELET ESTIMATE SLIGHTLY INCREASED
[2022-04-08 16:00] VITALS: BP 130/83
[2022-04-08] MEDS: BACLOFEN 10MG TABLET PO SCH ×2 (16:07→21:18)
[2022-04-08] MEDS: PREGABALIN 50 MG CAPSULE PO SCH (16:07)
[2022-04-08 20:00] VITALS: BP 159/96
[2022-04-09] VITALS (7 sets, daily range): BP systolic 141–152; BP diastolic 60–99
[2022-04-09] MEDS: ACETYLCYSTEINE 100MG/ML 10% VIAL 4ML INH SCH ×3 (00:09→17:13)
[2022-04-09] MEDS: IPRATROPIUM/ALBUTEROL 0.5-3(2.5)MG/3ML NEB HHN SCH ×6 (00:14→21:40)
[2022-04-09] MEDS: MEROPENEM 1000MG in NORMAL SALINE 100ML IV SCH ×2 (01:55→10:26)
[2022-04-09] MEDS: HYDROCODONE/ACETAMINOPHEN 10/325MG TABLET PO PRN (02:58)
[2022-04-09] MEDS: BACLOFEN 10MG TABLET PO SCH (05:08)
[2022-04-09] MEDS: INSULIN LISPRO 100 UNITS/ML SUBCUT SCH ×4 (05:19→20:21)
[2022-04-09] MEDS: BLOOD SUGAR DIAGNOSTIC STRIP TEST SCH ×4 (05:19→20:04)
[2022-04-09 08:07] LABS: HEMATOCRIT. 29.8 % (36.0-48.0); HEMOGLOBIN. 9.4 g/dL (12.0-16.0); MEAN CORPUSCULAR HEMOGLOBIN 28.7 pg (28.0-32.0); MEAN CORPUSCULAR VOLUME 90.7 fL (81.0-99.0); MEAN PLATELET VOLUME 9.5 fl (7.4-10.4); PLATELET 436 x1000/uL (130-400); RED BLOOD CELL COUNT 3.29 mill/uL (4.2-5.4); RED CELL DISTRIBUTION WIDTH 16.8 % (11.6-14.6)
[2022-04-09 08:16] LABS: BG BASE EXCESS 0.4 mmol/L (-2.0-2.0); BG CARBOXYHEMOGLOBIN 0.3 % (0.5-1.5); BG DEOXYHEMOGLOBIN 3.8 % (0.0-5.0); BG FRACTION INSPIRED OXYGEN 32; BG HCO3 ACT 25.1 mmol/L (22.0-26.0); BG METHEMOGLOBIN 0.3 % (0.0-1.5); BG OXYGEN SATURATION 96.2 % (92.0-98.5); BG OXYHEMOGLOBIN 95.6 % (94.0-97.0); BG PCO2 40.5 mmHg (35.0-45.0); BG PO2 86.9 mmHg (75.0-100.0); BG SAMPLE SITE RIGHT RADIAL; BG TOTAL HEMOGLOBIN 9.9 g/dL (12.0-18.0); BG VENT MODE NASAL CANNULA
[2022-04-09 09:06] LABS: ANTI-NUCLEAR ANTIBODIES DIRECT Negative (Negative)
[2022-04-09] MEDS: COLISTIMETHATE SODIUM 150MG/VIAL INH SCH ×2 (09:29→21:40)
[2022-04-09] MEDS: FUROSEMIDE 40MG/4ML VIAL IVP SCH (10:26)
[2022-04-09] MEDS: METOPROLOL TARTRATE 25MG TABLET PO SCH ×2 (10:26→20:33)
[2022-04-09] MEDS: METOLAZONE 2.5MG TABLET PO SCH (10:26)
[2022-04-09] MEDS: ENOXAPARIN 40MG/0.4ML SYR SUBCUT SCH (10:28)
[2022-04-09] MEDS: PREGABALIN 50 MG CAPSULE PO SCH ×3 (10:31→17:38)
[2022-04-09 11:14] LABS: PLATELET ESTIMATE INCREASED
[2022-04-09 13:10] LABS: ATYPICAL P-ANCA <1:20 titer (Neg:<1:20); CYTOPLASMIC C-ANCA <1:20 titer (Neg:<1:20); PERINUCLEAR P-ANCA <1:20 titer (Neg:<1:20)
[2022-04-09] MEDS ORDERED: RISPERIDONE 1MG TABLET PEG SCH (15:15)
[2022-04-09] MEDS ORDERED: LACTOBACILLUS GG CAPSULE PEG SCH (18:00)
[2022-04-09 19:06] LABS: ANTI-MYELOPEROXIDASE AB < 0.2 units (0.0-0.9); ANTI-PROTEINASE 3 ABS < 0.2 units (0.0-0.9)
== END 2022-04-09 22:54 | DRG 871 ==
LOC: ER 10:14 → 8WST 13:23 → EDBEDREQ 13:35 → EDBEDREQTM 13:35 → ENRESERV 21:03 → CANRESERV 21:04
PROVIDERS: ADMIT Internal Medicine; ATTEND Internal Medicine
DX: A41.9 Sepsis, unspecified organism (principal); G82.50 Quadriplegia, unspecified; G93.41 Metabolic encephalopathy; J15.8 Pneumonia due to other specified bacteria; J69.0 Pneumonitis due to inhalation of food and vomit; J96.21 Acute and chronic respiratory failure with hypoxia; N17.9 Acute kidney failure, unspecified; J91.8 Pleural effusion in other conditions classified elsewhere; N39.0 Urinary tract infection, site not specified; E87.2 Acidosis; E11.52 Type 2 diabetes mellitus with diabetic peripheral angiopathy with gangrene; R65.20 Severe sepsis without septic shock; Z20.822 Contact with and (suspected) exposure to COVID-19; E11.22 Type 2 diabetes mellitus with diabetic chronic kidney disease; I12.9 Hypertensive chronic kidney disease with stage 1 through stage 4 chronic kidney disease, or unspecified chronic kidney disease; N18.9 Chronic kidney disease, unspecified; R13.10 Dysphagia, unspecified; E83.52 Hypercalcemia; D63.8 Anemia in other chronic diseases classified elsewhere; E87.5 Hyperkalemia; F41.1 Generalized anxiety disorder; F32.A Depression, unspecified; D63.1 Anemia in chronic kidney disease; E87.70 Fluid overload, unspecified; F29 Unspecified psychosis not due to a substance or known physiological condition; Z74.01 Bed confinement status; Z86.16 Personal history of COVID-19; Z88.0 Allergy status to penicillin; Z88.2 Allergy status to sulfonamides; Z86.73 Personal history of transient ischemic attack (TIA), and cerebral infarction without residual deficits; Z93.1 Gastrostomy status
CPT/HCPCS: 36415; 36600; 71045; 71250; 76770; 80048; 80053; 80202; 80305; 80320; 81003; 82375; 82550; 82805; 82962; 83520; 83605; 83735; 83880; 84100; 84145; 84484; 85025; 86038; 86160; 86256; 87070; 87077; 87186; 87426; 93005; 93970; 94640; 94667; 97162; 99291; C9803; J0770; J1650; J1815; J1940; J2185; J3370; J3475; J3490; J7060; J7131; J7608; G0480

== ENCOUNTER 2022-05-11 22:37 | Inpatient (IN) | payer MEDICAID, MEDICARE ==
[~2022-05-11] VITALS: Ht 170.2 cm; Wt 74.8 kg
[~2022-05-11 22:37] MED LIST changes: +BACL-141 PEG; +DICL100G31 TP; +DOCU100T PEG; +HYDR-4001 PEG; +HYDR-4133 PEG; +HYDR-4134 PO; +IPRA3AMP31 IH; +LACT1CAP58 PEG; +METO-539 PEG; +MUPI1OIN4 TP; +ONDA4TAB50 PEG; +PREG100C PEG; +TOPUD PEG
[2022-05-12] VITALS (11 sets, daily range): BP systolic 114–163; BP diastolic 72–100
[2022-05-12 00:52] LABS: HEMATOCRIT. 22.3 % (36.0-48.0); HEMOGLOBIN. 7.1 g/dL (12.0-16.0); MEAN CORPUSCULAR HEMOGLOBIN 28.9 pg (28.0-32.0); MEAN CORPUSCULAR VOLUME 90.6 fL (81.0-99.0); MEAN PLATELET VOLUME 11.6 fl (7.4-10.4); PLATELET 163 x1000/uL (130-400); RED BLOOD CELL COUNT 2.46 mill/uL (4.2-5.4); RED CELL DISTRIBUTION WIDTH 17.2 % (11.6-14.6)
[2022-05-12 00:56] LABS: CHLORIDE 110 mEq/L (98-107)
[2022-05-12 00:58] LABS: HCG SCREEN NEGATIVE
[2022-05-12] MEDS ORDERED: SODIUM POLYSTYRENE SULFONATE 15 G/60 ML BOT PO ONE (01:15)
[2022-05-12] MEDS ORDERED: DEXTROSE 50% WATER 50ML SYRINGE IV ONE (01:15)
[2022-05-12] MEDS ORDERED: ALBUTEROL (0.083%) 2.5MG/3ML NEB HHN ONE (01:15)
[2022-05-12] MEDS ORDERED: INSULIN REGULAR (HUMULIN R) 300UNITS/3ML VIAL IV ONE (01:15)
[2022-05-12] MEDS ORDERED: CALCIUM GLUCONATE 100MG/ML 10ML VIAL IV ONE (01:15)
[2022-05-12] MEDS ORDERED: ONDANSETRON HCL 4MG/2ML INJ IV PRN (03:30)
[2022-05-12] MEDS ORDERED: DOCUSATE SODIUM 100MG CAPSULE PO PRN (03:30)
[2022-05-12] MEDS ORDERED: DEXTROSE 50% WATER 50ML SYRINGE IV PRN (03:30)
[2022-05-12] MEDS ORDERED: ACETAMINOPHEN 325MG TABLET PO PRN (03:30)
[2022-05-12] MEDS ORDERED: GUAIFENESIN 200MG/10ML SUGAR FREE UDC PO PRN (03:30)
[2022-05-12] MEDS ORDERED: IPRATROPIUM/ALBUTEROL 0.5-3(2.5)MG/3ML NEB NEB PRN (03:30)
[2022-05-12] MEDS ORDERED: DICLOFENAC SODIUM 1% GEL 50GM TOP PRN (04:00)
[2022-05-12 04:15] LABS: PLATELET ESTIMATE NORMAL
[2022-05-12] MEDS ORDERED: LEVOFLOXACIN 500MG PREMIX 100 ML IV SCH (05:00)
[2022-05-12] MEDS ORDERED: VANCOMYCIN 1500MG in DEXTROSE 5% WATER 250ML IV NR (06:00)
[2022-05-12] MEDS: SODIUM CHLORIDE 0.9% 1,000 ML IV SCH ×2 (06:16→23:30)
[2022-05-12] MEDS: INSULIN LISPRO 100 UNITS/ML SUBCUT SCH ×4 (07:40→20:03)
[2022-05-12] MEDS: BLOOD SUGAR DIAGNOSTIC STRIP TEST SCH ×4 (07:41→20:03)
[2022-05-12 08:35] LABS: BG BASE EXCESS -7.8 mmol/L (-2.0-2.0); BG CARBOXYHEMOGLOBIN 0.3 % (0.5-1.5); BG DEOXYHEMOGLOBIN 1.7 % (0.0-5.0); BG FRACTION INSPIRED OXYGEN 28; BG HCO3 ACT 17.7 mmol/L (22.0-26.0); BG METHEMOGLOBIN 0.4 % (0.0-1.5); BG OXYGEN SATURATION 98.3 % (92.0-98.5); BG OXYHEMOGLOBIN 97.6 % (94.0-97.0); BG PCO2 35.7 mmHg (35.0-45.0); BG PH 7.312 (7.350-7.450); BG PO2 113.5 mmHg (75.0-100.0); BG SAMPLE SITE RIGHT RADIAL; BG TOTAL HEMOGLOBIN 8.7 g/dL (12.0-18.0); BG VENT MODE NASAL CANNULA
[2022-05-12] MEDS: PREGABALIN 50 MG CAPSULE PO SCH ×3 (08:48→16:49)
[2022-05-12] MEDS: METOPROLOL TARTRATE 50MG TABLET PEG SCH ×2 (08:49→16:49)
[2022-05-12] MEDS: BACLOFEN 10MG TABLET PEG SCH ×3 (08:50→16:49)
[2022-05-12] MEDS ORDERED: LIDOCAINE HCL 1% 30ML VIAL (10MG/ML) ONE (08:51)
[2022-05-12] MEDS: LEVOFLOXACIN 500MG PREMIX 100 ML IV SCH (08:53)
[2022-05-12] MEDS: HYDRALAZINE HCL 25MG TABLET PO SCH (08:54)
[2022-05-12] MEDS: PANTOPRAZOLE SODIUM 40 MG/VIAL IV SCH (08:58)
[2022-05-12] MEDS: MUPIROCIN 2% OINT 22GM TOP SCH ×3 (08:59→16:49)
[2022-05-12 12:01] LABS: CLARITY URINE CLEAR (CLEAR); COLOR URINE YELLOW (YELLOW); KETONES URINE NEGATIVE (NEGATIVE); LEUKOCYTE ESTERASE URINE 3+ (NEGATIVE); NITRITE URINE NEGATIVE (NEGATIVE); OCCULT BLOOD URINE 1+ (NEGATIVE); PROTEIN URINE 1+ (NEGATIVE); SPECIFIC GRAVITY URINE 1.013 (1.005-1.030); UROBILINOGEN URINE 0.2 E.U./dL (0.2-1.0)
[2022-05-12 12:17] LABS: HEMOGLOBIN 7.4 g/dL (12.0-16.0); MEAN CORPUSCULAR VOLUME 89.7 fL (81.0-99.0); PLATELET 156 x1000/uL (130-400); RED BLOOD CELL COUNT 2.57 mill/uL (4.2-5.4); RED CELL DISTRIBUTION WIDTH 16.6 % (11.6-14.6)
[2022-05-12 12:24] LABS: CHLORIDE 105 mEq/L (98-107)
[2022-05-12] MEDS: CLONIDINE 0.1MG TABLET PO PRN (12:29)
[2022-05-12 12:35] LABS: LDL CHOLESTEROL 75 mg/dL (5-100); PHOSPHORUS 5.5 mg/dL (2.5-4.9)
[2022-05-12 12:40] LABS: HDL CHOLESTEROL 37 mg/dL (40-59)
[2022-05-12 13:00] LABS: TOTAL IRON BINDING CAPACITY 218 ug/dL (250-450)
[2022-05-12] MEDS ORDERED: SODIUM POLYSTYRENE SULFONATE 15 G/60 ML BOT PO NR (18:00)
[2022-05-13] VITALS (8 sets, daily range): BP systolic 100–179; BP diastolic 59–100
[2022-05-13] MEDS: ACETAMINOPHEN 325MG TABLET PO PRN ×2 (01:51→21:08)
[2022-05-13 05:41] LABS: HEMATOCRIT. 27.8 % (36.0-48.0); MEAN CORPUSCULAR HEMOGLOBIN 29.3 pg (28.0-32.0); MEAN PLATELET VOLUME 12.1 fl (7.4-10.4); PLATELET 139 x1000/uL (130-400); RED BLOOD CELL COUNT 3.13 mill/uL (4.2-5.4); RED CELL DISTRIBUTION WIDTH 16.4 % (11.6-14.6)
[2022-05-13] MEDS: BLOOD SUGAR DIAGNOSTIC STRIP TEST SCH ×4 (06:00→21:00)
[2022-05-13] MEDS: INSULIN LISPRO 100 UNITS/ML SUBCUT SCH ×4 (06:39→21:07)
[2022-05-13 06:41] LABS: HEMOGLOBIN. 9.2 g/dL (12.0-16.0)
[2022-05-13] MEDS: SODIUM CHLORIDE 0.9% 1,000 ML IV SCH (06:42)
[2022-05-13] MEDS: METOPROLOL TARTRATE 50MG TABLET PEG SCH ×2 (08:33→16:42)
[2022-05-13] MEDS: HYDRALAZINE HCL 10MG TABLET PEG PRN ×2 (08:33→21:08)
[2022-05-13] MEDS: PREGABALIN 50 MG CAPSULE PO SCH ×3 (08:33→16:42)
[2022-05-13] MEDS: BACLOFEN 10MG TABLET PEG SCH ×3 (08:33→16:42)
[2022-05-13] MEDS: LEVOFLOXACIN 500MG PREMIX 100 ML IV SCH (08:33)
[2022-05-13] MEDS: PANTOPRAZOLE SODIUM 40 MG/VIAL IV SCH (08:34)
[2022-05-13] MEDS: HYDRALAZINE HCL 25MG TABLET PO SCH (08:35)
[2022-05-13] MEDS: MUPIROCIN 2% OINT 22GM TOP SCH ×3 (08:37→16:42)
[2022-05-13 08:49] LABS: PLATELET ESTIMATE NORMAL
[2022-05-13] MEDS ORDERED: SODIUM POLYSTYRENE SULFONATE 15 G/60 ML BOT PO NR (10:30)
[2022-05-13] MEDS: CLONIDINE 0.1MG TABLET PO PRN (12:00)
[2022-05-14] MEDS: SODIUM CHLORIDE 0.9% 1,000 ML IV SCH ×2 (02:45→12:41)
[2022-05-14 03:52] VITALS: BP 108/75
[2022-05-14] MEDS: INSULIN LISPRO 100 UNITS/ML SUBCUT SCH ×4 (06:20→21:00)
[2022-05-14] MEDS: BLOOD SUGAR DIAGNOSTIC STRIP TEST SCH ×4 (06:20→21:00)
[2022-05-14 07:58] VITALS: BP 152/98
[2022-05-14 08:18] LABS: HEMATOCRIT 28.6 % (36.0-48.0); HEMOGLOBIN 9.6 g/dL (12.0-16.0); MEAN CORPUSCULAR HEMOGLOBIN 29.9 pg (28.0-32.0); MEAN CORPUSCULAR VOLUME 89.6 fL (81.0-99.0); PLATELET 147 x1000/uL (130-400); RED BLOOD CELL COUNT 3.19 mill/uL (4.2-5.4); RED CELL DISTRIBUTION WIDTH 15.9 % (11.6-14.6)
[2022-05-14] MEDS: CLONIDINE 0.1MG TABLET PO PRN (08:38)
[2022-05-14] MEDS: PREGABALIN 50 MG CAPSULE PO SCH ×3 (08:38→18:27)
[2022-05-14] MEDS: PANTOPRAZOLE SODIUM 40 MG/VIAL IV SCH (08:39)
[2022-05-14] MEDS: BACLOFEN 10MG TABLET PEG SCH ×3 (08:39→18:28)
[2022-05-14] MEDS: METOPROLOL TARTRATE 50MG TABLET PEG SCH ×2 (08:39→18:27)
[2022-05-14] MEDS: HYDRALAZINE HCL 25MG TABLET PO SCH (08:39)
[2022-05-14] MEDS: LEVOFLOXACIN 500MG PREMIX 100 ML IV SCH (08:40)
[2022-05-14] MEDS: MUPIROCIN 2% OINT 22GM TOP SCH ×3 (08:40→18:29)
[2022-05-14 11:55] VITALS: BP 140/92
[2022-05-14] MEDS: NYSTATIN POWDER 15GM TOP SCH ×2 (14:04→18:29)
[2022-05-14 16:00] VITALS: BP 157/87
[2022-05-14 20:00] VITALS: BP 162/90
[2022-05-14] MEDS ORDERED: IOHEXOL-300 100 ML BOTTLE ONE (21:31)
[2022-05-14] MEDS: HYDRALAZINE HCL 10MG TABLET PEG PRN (22:36)
[2022-05-15] VITALS: BP 125/69
[2022-05-15] MEDS: SODIUM CHLORIDE 0.9% 1,000 ML IV SCH ×3 (01:30→21:30)
[2022-05-15 04:00] VITALS: BP 178/94
[2022-05-15] MEDS: HYDRALAZINE HCL 10MG TABLET PEG PRN ×3 (06:01→20:42)
[2022-05-15] MEDS: BLOOD SUGAR DIAGNOSTIC STRIP TEST SCH ×4 (06:52→20:25)
[2022-05-15 07:38] LABS: HEMATOCRIT 26.8 % (36.0-48.0); HEMOGLOBIN 9.2 g/dL (12.0-16.0); MEAN CORPUSCULAR HEMOGLOBIN 30.9 pg (28.0-32.0); MEAN CORPUSCULAR VOLUME 90.1 fL (81.0-99.0); PLATELET 151 x1000/uL (130-400); RED BLOOD CELL COUNT 2.98 mill/uL (4.2-5.4); RED CELL DISTRIBUTION WIDTH 16.2 % (11.6-14.6)
[2022-05-15 08:00] VITALS: BP 139/88
[2022-05-15] MEDS: PANTOPRAZOLE SODIUM 40 MG/VIAL IV SCH (08:47)
[2022-05-15] MEDS: PREGABALIN 50 MG CAPSULE PO SCH ×3 (08:47→16:57)
[2022-05-15] MEDS: LEVOFLOXACIN 500MG PREMIX 100 ML IV SCH (08:47)
[2022-05-15] MEDS: METOPROLOL TARTRATE 50MG TABLET PEG SCH ×2 (08:48→16:57)
[2022-05-15] MEDS: BACLOFEN 10MG TABLET PEG SCH ×3 (08:48→16:57)
[2022-05-15] MEDS: MUPIROCIN 2% OINT 22GM TOP SCH ×3 (08:49→16:57)
[2022-05-15] MEDS: NYSTATIN POWDER 15GM TOP SCH ×3 (08:49→16:57)
[2022-05-15] MEDS: INSULIN LISPRO 100 UNITS/ML SUBCUT SCH ×4 (08:50→20:25)
[2022-05-15] MEDS: HYDRALAZINE HCL 25MG TABLET PO SCH (08:53)
[2022-05-15] MEDS: NA PHOS,M-B/NA PHOS,DI-BA ENEMA 118ML PR NR ×2 (11:45→17:01)
[2022-05-15] MEDS ORDERED: MAGNESIUM HYDROXIDE 400MG/5ML 30ML UDC PO PRN (11:45)
[2022-05-15 12:00] VITALS: BP 179/107
[2022-05-15] MEDS: SENNOSIDES/DOCUSATE SOD 8.6/50MG TABLET PO SCH ×2 (12:21→16:57)
[2022-05-15] MEDS: POLYETHYLENE GLYCOL 3350 (17GM) 1 DOSE PACK PO SCH (12:23)
[2022-05-15] MEDS: CLONIDINE 0.1MG TABLET PO PRN (14:27)
[2022-05-15 16:00] VITALS: BP 165/84
[2022-05-15] MEDS: ACETAMINOPHEN 325MG TABLET PO PRN (17:01)
[2022-05-15 20:00] VITALS: BP 165/105
[2022-05-15] MEDS ORDERED: BISACODYL 10MG SUPP PR NR (20:00)
[2022-05-15] MEDS: HYDROCODONE/ACETAMINOPHEN 5/325MG TABLET PO PRN (20:44)
[2022-05-16] VITALS: BP 169/107
[2022-05-16 04:00] VITALS: BP 103/53
[2022-05-16] MEDS: BLOOD SUGAR DIAGNOSTIC STRIP TEST SCH ×6 (05:50→21:00)
[2022-05-16] MEDS: HYDROCODONE/ACETAMINOPHEN 5/325MG TABLET PO PRN ×2 (05:53→17:23)
[2022-05-16] MEDS: HYDRALAZINE HCL 10MG TABLET PEG PRN (05:53)
[2022-05-16] MEDS: INSULIN LISPRO 100 UNITS/ML SUBCUT SCH ×4 (05:54→21:00)
[2022-05-16] MEDS: SODIUM CHLORIDE 0.9% 1,000 ML IV SCH ×2 (05:54→17:18)
[2022-05-16 06:26] LABS: HEMATOCRIT 27.7 % (36.0-48.0); HEMOGLOBIN 8.9 g/dL (12.0-16.0); MEAN CORPUSCULAR HEMOGLOBIN 28.9 pg (28.0-32.0); MEAN CORPUSCULAR VOLUME 90.3 fL (81.0-99.0); PLATELET 150 x1000/uL (130-400); RED BLOOD CELL COUNT 3.07 mill/uL (4.2-5.4); RED CELL DISTRIBUTION WIDTH 16.4 % (11.6-14.6)
[2022-05-16 07:59] VITALS: BP 157/95
[2022-05-16] MEDS: BACLOFEN 10MG TABLET PEG SCH ×3 (08:32→17:16)
[2022-05-16] MEDS: PANTOPRAZOLE SODIUM 40 MG/VIAL IV SCH (08:32)
[2022-05-16] MEDS: SENNOSIDES/DOCUSATE SOD 8.6/50MG TABLET PO SCH ×2 (08:32→17:16)
[2022-05-16] MEDS: METOPROLOL TARTRATE 50MG TABLET PEG SCH ×2 (08:33→17:17)
[2022-05-16] MEDS: PREGABALIN 50 MG CAPSULE PO SCH ×3 (08:33→17:22)
[2022-05-16] MEDS: POLYETHYLENE GLYCOL 3350 (17GM) 1 DOSE PACK PO SCH (08:34)
[2022-05-16] MEDS: MUPIROCIN 2% OINT 22GM TOP SCH ×3 (08:34→17:23)
[2022-05-16] MEDS: NYSTATIN POWDER 15GM TOP SCH ×3 (08:34→17:28)
[2022-05-16] MEDS: HYDRALAZINE HCL 25MG TABLET PO SCH (08:37)
[2022-05-16 08:40] LABS: PHOSPHORUS 4.9 mg/dL (2.5-4.9)
[2022-05-16] MEDS ORDERED: DEXTROSE 50% WATER 50ML SYRINGE IV PRN (09:00)
[2022-05-16] MEDS ORDERED: SODIUM POLYSTYRENE SULFONATE 15 G/60 ML BOT PO NR (09:00)
[2022-05-16] MEDS ORDERED: MAGNESIUM 4 G PREMIX 100 ML IV NR (11:00)
[2022-05-16 12:00] VITALS: BP 160/90
[2022-05-16] MEDS: CLONIDINE 0.1MG TABLET PO PRN (12:04)
[2022-05-16] MEDS: LEVOFLOXACIN 500MG TABLET PO SCH (12:04)
[2022-05-16 16:00] VITALS: BP 152/90
[2022-05-16] MEDS: AMLODIPINE 10MG TABLET PO SCH (17:27)
[2022-05-16 20:00] VITALS: BP 159/96
[2022-05-17] VITALS: BP 128/90
[2022-05-17] MEDS: HYDROCODONE/ACETAMINOPHEN 5/325MG TABLET PO PRN ×3 (00:22→20:58)
[2022-05-17] MEDS: SODIUM CHLORIDE 0.9% 1,000 ML IV SCH ×2 (00:23→20:52)
[2022-05-17 04:00] VITALS: BP 141/95
[2022-05-17 07:07] LABS: BASOPHILS % 0.5 % (0.0-2.0); EOSINOPHILS % 3.5 % (0.0-5.0); HEMATOCRIT. 28.5 % (36.0-48.0); HEMOGLOBIN. 9.2 g/dL (12.0-16.0); MEAN CORPUSCULAR HEMOGLOBIN 29.6 pg (28.0-32.0); MEAN CORPUSCULAR VOLUME 91.4 fL (81.0-99.0); MEAN PLATELET VOLUME 11.3 fl (7.4-10.4); MONOCYTES % 8.2 % (2.0-8.0); NEUTROPHILS % 64.8 % (40.0-76.0); PLATELET 154 x1000/uL (130-400); RED BLOOD CELL COUNT 3.12 mill/uL (4.2-5.4); RED CELL DISTRIBUTION WIDTH 16.4 % (11.6-14.6)
[2022-05-17] MEDS ORDERED: LIDOCAINE HCL 1% 10 MG/ML 10ML VIAL ONE (07:10)
[2022-05-17] MEDS ORDERED: BUPIVACAINE HCL/PF 0.5% (5MG/ML) 10ML ONE (07:10)
[2022-05-17] MEDS ORDERED: FENTANYL CITRATE/PF 50MCG/ML 2ML VIAL ONE (07:16)
[2022-05-17] MEDS ORDERED: PHENYLEPHRINE HCL 10 MG/ML 1ML (IV VIAL) IV ONE (07:16)
[2022-05-17] MEDS ORDERED: PROPOFOL 200MG/20ML VIAL IV ONE ×2 (07:16)
[2022-05-17] MEDS ORDERED: LIDOCAINE HCL 2% 5ML SYRINGE IV ONE (07:30)
[2022-05-17] MEDS: BLOOD SUGAR DIAGNOSTIC STRIP TEST SCH ×4 (07:34→20:59)
[2022-05-17] MEDS: INSULIN LISPRO 100 UNITS/ML SUBCUT SCH ×4 (07:34→20:58)
[2022-05-17] MEDS ORDERED: MIDAZOLAM HCL 2 MG/2 ML VIAL ONE (07:48)
[2022-05-17 08:17] VITALS: BP 143/95
[2022-05-17] MEDS: METOPROLOL TARTRATE 50MG TABLET PEG SCH ×2 (08:52→17:33)
[2022-05-17] MEDS: HYDRALAZINE HCL 25MG TABLET PO SCH (08:52)
[2022-05-17] MEDS: SENNOSIDES/DOCUSATE SOD 8.6/50MG TABLET PO SCH ×2 (08:52→17:33)
[2022-05-17] MEDS: BACLOFEN 10MG TABLET PEG SCH ×3 (08:52→17:33)
[2022-05-17] MEDS: AMLODIPINE 10MG TABLET PO SCH (08:52)
[2022-05-17] MEDS: PREGABALIN 50 MG CAPSULE PO SCH ×3 (08:52→17:33)
[2022-05-17] MEDS: NYSTATIN POWDER 15GM TOP SCH ×3 (08:53→17:34)
[2022-05-17] MEDS: MUPIROCIN 2% OINT 22GM TOP SCH ×3 (08:53→17:36)
[2022-05-17] MEDS: FAMOTIDINE 20MG/2ML VIAL IV SCH ×2 (08:54→20:46)
[2022-05-17] MEDS: POLYETHYLENE GLYCOL 3350 (17GM) 1 DOSE PACK PO SCH (08:54)
[2022-05-17] MEDS ORDERED: SORBITOL 70% SOLN 30ML PO NR (11:30)
[2022-05-17 11:58] VITALS: BP 144/86
[2022-05-17] MEDS: LEVOFLOXACIN 500MG TABLET PO SCH (12:11)
[2022-05-17 15:59] VITALS: BP 154/98
[2022-05-17 20:00] VITALS: BP 169/108
[2022-05-17] MEDS: CLONIDINE 0.1MG TABLET PO PRN (20:58)
[2022-05-18] VITALS (7 sets, daily range): BP systolic 129–174; BP diastolic 88–97
[2022-05-18] MEDS ORDERED: SODIUM CHLORIDE 0.45% 1,000 ML IV SCH
[2022-05-18] MEDS: HYDROCODONE/ACETAMINOPHEN 5/325MG TABLET PO PRN ×2 (02:43→15:45)
[2022-05-18] MEDS ORDERED: POLYMYXIN B SULFATE 500000 UNITS/VIAL ONE (06:53)
[2022-05-18] MEDS ORDERED: LIDOCAINE HCL 1% 10 MG/ML 10ML VIAL ONE (06:53)
[2022-05-18] MEDS ORDERED: BUPIVACAINE HCL/PF 0.5% (5MG/ML) 10ML ONE (06:53)
[2022-05-18] MEDS ORDERED: VANCOMYCIN HCL 1 GM/VIAL ONE (06:53)
[2022-05-18 07:17] LABS: BASOPHILS % 0.4 % (0.0-2.0); EOSINOPHILS % 2.9 % (0.0-5.0); HEMATOCRIT. 28.7 % (36.0-48.0); HEMOGLOBIN. 9.5 g/dL (12.0-16.0); LYMPHOCYTES % 22.3 % (20.0-50.0); MEAN CORPUSCULAR HEMOGLOBIN 30.7 pg (28.0-32.0); MEAN CORPUSCULAR VOLUME 92.5 fL (81.0-99.0); MEAN PLATELET VOLUME 11.1 fl (7.4-10.4); MONOCYTES % 8.3 % (2.0-8.0); NEUTROPHILS % 66.1 % (40.0-76.0); PLATELET 156 x1000/uL (130-400); RED CELL DISTRIBUTION WIDTH 16.9 % (11.6-14.6)
[2022-05-18] MEDS: INSULIN LISPRO 100 UNITS/ML SUBCUT SCH ×3 (07:27→17:17)
[2022-05-18] MEDS ORDERED: PROPOFOL 200MG/20ML VIAL IV ONE (07:27)
[2022-05-18] MEDS: BLOOD SUGAR DIAGNOSTIC STRIP TEST SCH ×3 (07:27→17:17)
[2022-05-18] MEDS ORDERED: FENTANYL CITRATE/PF 50MCG/ML 2ML VIAL ONE (07:27)
[2022-05-18] MEDS ORDERED: MIDAZOLAM HCL 2 MG/2 ML VIAL ONE (07:28)
[2022-05-18] MEDS ORDERED: CLINDAMYCIN 600MG PREMIX 50 ML IV ONE (07:58)
[2022-05-18] MEDS ORDERED: ONDANSETRON HCL 4MG/2ML INJ IV PRN (08:15)
[2022-05-18] MEDS ORDERED: LABETALOL 5MG/ML SYR 20 MG/4 ML SYRINGE IV PRN (08:15)
[2022-05-18] MEDS ORDERED: MEPERIDINE HCL/PF 25MG/ML CPJ IV PRN (08:15)
[2022-05-18] MEDS ORDERED: HYDROMORPHONE HCL/PF 2MG/ML CPJ IV PRN (08:15)
[2022-05-18] MEDS: METOPROLOL TARTRATE 50MG TABLET PEG SCH ×2 (10:39→16:44)
[2022-05-18] MEDS: HYDRALAZINE HCL 10MG TABLET PEG PRN ×2 (10:39→15:45)
[2022-05-18] MEDS: SENNOSIDES/DOCUSATE SOD 8.6/50MG TABLET PO SCH ×2 (10:39→16:43)
[2022-05-18] MEDS: MUPIROCIN 2% OINT 22GM TOP SCH ×3 (10:39→16:45)
[2022-05-18] MEDS: PREGABALIN 50 MG CAPSULE PO SCH ×3 (10:39→16:44)
[2022-05-18] MEDS: FAMOTIDINE 20MG/2ML VIAL IV SCH (10:39)
[2022-05-18] MEDS: SODIUM CHLORIDE 0.9% 1,000 ML IV SCH (10:40)
[2022-05-18] MEDS: NYSTATIN POWDER 15GM TOP SCH ×3 (10:40→16:44)
[2022-05-18] MEDS: AMLODIPINE 10MG TABLET PO SCH (10:40)
[2022-05-18] MEDS: BACLOFEN 10MG TABLET PEG SCH ×3 (10:40→16:44)
[2022-05-18] MEDS: POLYETHYLENE GLYCOL 3350 (17GM) 1 DOSE PACK PO SCH (10:41)
[2022-05-18] MEDS: HYDRALAZINE HCL 25MG TABLET PO SCH (10:42)
[2022-05-18] MEDS: CLONIDINE 0.1MG TABLET PO PRN (11:11)
[2022-05-18] MEDS ORDERED: DOCUSATE SODIUM 100MG CAPSULE PO SCH (17:00)
[2022-05-18] MEDS ORDERED: SENNOSIDES 8.6MG TABLET PO SCH (21:00)
[2022-05-19] MEDS ORDERED: LACTULOSE 20G/30ML UDC PO SCH (09:00)
== END 2022-05-18 19:35 | DRG 314 ==
LOC: ER 22:37 → ENRESERV 05-12 03:16 → 8WST 05-12 05:30
PROVIDERS: ADMIT Internal Medicine; ATTEND Internal Medicine
PROC: 30233N1 Transfusion of Nonautologous Red Blood Cells into Peripheral Vein, Percutaneous Approach (ICD-10-PCS; principal; 2022-05-12)
PROC: 02HV33Z Insertion of Infusion Device into Superior Vena Cava, Percutaneous Approach (ICD-10-PCS; 2022-05-12)
PROC: B548ZZA Ultrasonography of Superior Vena Cava, Guidance (ICD-10-PCS; 2022-05-12)
PROC: 0Y6P0Z1 Detachment at Right 1st Toe, High, Open Approach (ICD-10-PCS; 2022-05-18)
DX: E11.52 Type 2 diabetes mellitus with diabetic peripheral angiopathy with gangrene (principal); J96.01 Acute respiratory failure with hypoxia; G82.50 Quadriplegia, unspecified; I12.0 Hypertensive chronic kidney disease with stage 5 chronic kidney disease or end stage renal disease; E87.29 Other acidosis; N17.9 Acute kidney failure, unspecified; J18.9 Pneumonia, unspecified organism; L89.152 Pressure ulcer of sacral region, stage 2; N18.6 End stage renal disease; D63.8 Anemia in other chronic diseases classified elsewhere; E88.09 Other disorders of plasma-protein metabolism, not elsewhere classified; E11.22 Type 2 diabetes mellitus with diabetic chronic kidney disease; E87.5 Hyperkalemia; F32.A Depression, unspecified; J44.0 Chronic obstructive pulmonary disease with (acute) lower respiratory infection; E11.40 Type 2 diabetes mellitus with diabetic neuropathy, unspecified; K56.41 Fecal impaction; L30.4 Erythema intertrigo; L97.829 Non-pressure chronic ulcer of other part of left lower leg with unspecified severity; L97.819 Non-pressure chronic ulcer of other part of right lower leg with unspecified severity; B96.89 Other specified bacterial agents as the cause of diseases classified elsewhere; E11.621 Type 2 diabetes mellitus with foot ulcer; T50.995A Adverse effect of other drugs, medicaments and biological substances, initial encounter; E83.42 Hypomagnesemia; E87.8 Other disorders of electrolyte and fluid balance, not elsewhere classified; Z20.822 Contact with and (suspected) exposure to COVID-19; E83.52 Hypercalcemia; Z93.1 Gastrostomy status; E87.20 Acidosis, unspecified; Z88.1 Allergy status to other antibiotic agents; Z88.0 Allergy status to penicillin; Z88.2 Allergy status to sulfonamides; Z88.8 Allergy status to other drugs, medicaments and biological substances; Z91.018 Allergy to other foods; I69.365 Other paralytic syndrome following cerebral infarction, bilateral; Z79.01 Long term (current) use of anticoagulants; Z79.899 Other long term (current) drug therapy; Y92.89 Other specified places as the place of occurrence of the external cause
CPT/HCPCS: 36415; 36573; 36600; 71045; 71250; 73630; 74176; 74177; 76770; 80048; 80053; 80061; 81003; 82040; 82270; 82375; 82728; 82805; 82962; 83036; 83540; 83550; 83605; 83735; 84100; 84134; 84145; 84484; 84703; 85025; 85027; 86850; 86900; 86920; 87426; 88304; 88311; 93005; 93923; 97162; 97165; 99285; A6261; C1725; C1769; C1893; C9113; J0610; J1815; J1956; J2250; J2370; J2704; J3010; J3370; J3475; J3490; J7030; J7060; P9016; Q9967; A4315